=== PATIENT | female | born 1965 | race Caucasian/White ===

== ENCOUNTER 2024-07-15 06:35 | Emergency (ER) | payer SELFPAY ==
[2024-07-15 06:38] VITALS: BP 137/71
[2024-07-15 07:19] VITALS: BP 132/66
--- NOTE | 2024-07-15 07:19 | ED.GENMED ---
History of Present Illness
General
Chief Complaint: Alcohol Problem
Source: patient and ambulance crew
Exam Limitations: other (Alcohol intoxication)
Time Seen by Provider: 07/15/24 06:54
History of Present Illness
History of Present Illness:
58-year-old female who presents because she states she is 'scared to '. The patient states that she was sober for some months and recently started drinking again. She states she does not want to feel like this and does not want to drink. She
admits that she has a rehab stay planned for tomorrow. EMS reports that the patient was kicked out of her correction house and was standing in [facility]. Patient denies any current medical complaints. No abdominal pain. No vomiting. She admits
that she drinks vodka.
Past History
Past History
ED Past Medical History: Psychiatric (Anxiety, depression)
ED Past Surgical History: Cholecystectomy and
Phy Exam
Physical Exam
Physical Exam:
CONSTITUTIONAL Patient alert and oriented to person, place and time. Tearful on exam, mildly intoxicated. Vital signs reviewed.
HEAD atraumatic, normocephalic.
EYES eyelids normal to inspection, Extraocular muscles intact, Conjunctiva normal, Sclera normal.
NECK normal range of motion, Trachea midline, no jugular venous distention.
RESPIRATORY CHEST No respiratory distress noted, Chest expansion equal
ABDOMEN abdomen nontender, Bowel sounds normal. No distention.
BACK normal inspection, no obvious deformities
UPPER EXTREMITY range of motion normal, Motor strength normal, no cyanosis, no edema.
LOWER EXTREMITY range of motion normal, Motor strength normal, no cyanosis, no edema.
NEURO Speech normal, No focal motor deficits, [place] coma scale 15, Memory normal, Cranial Nerves intact to screening exam.
SKIN skin warm, dry, and normal in color.
Scores
Withdrawal Assessment of Alcohol
Withdrawal Assessment Completed?: Not applicable
Course
Orders/Labs/Results
Orders:
Orders
07/15/24 07:10
0.9% Sodium Chloride 1000 ml [Nss] 1,000 ml IV BOLUS
07/15/24 07:20
Complete Blood Count/With Diff Urgent
Comprehensive Metabolic Panel Urgent
Lipase Urgent
07/15/24 10:39
Ibuprofen [Motrin] 400 mg .ROUTE .STK-MED ONE
07/15/24 10:40
Ibuprofen [Motrin] 400 mg PO NOW STA
07/15/24 12:56
Diazepam [Valium] 10 mg PO NOW STA
07/15/24 12:59
Lorazepam [Ativan] 2 mg PO NOW STA
Abnormal Lab Results
07/15/24
07:20
Absolute Lymphs (auto) 3.8 H 10^3/uL
(1.2-3.4)
Neutrophils % 25.6 L %
(42.2-75.2)
Lymphocytes % 62.2 H %
(20.5-51.1)
Chloride 108 H mmol/L
(98-107)
Glucose 260 H mg/dl
(70-99)
Calcium 8.3 L mg/dl
(8.4-10.2)
AST 49 H U/L
(14-36)
07/15/24 07:20
07/15/24 07:20
Vital Signs
Initial and Last Documented VS:
Initial Vital Signs
Temp Pulse Resp BP Pulse Ox
97.9 F 78 20 137/71 92
07/15/24 06:38 07/15/24 06:38 07/15/24 06:38 07/15/24 06:38 07/15/24 06:38
Last Documented Vital Signs
Temp Pulse Resp BP Pulse Ox
97.9 F 84 12 126/62 93
07/15/24 06:38 07/15/24 12:29 07/15/24 10:00 07/15/24 10:00 07/15/24 12:29
MDM/Problems Addressed
MDM/Problems Addressed:
Acute alcohol intoxication, chronic alcoholism, acute hyperglycemia
*Pulse Oximetry
Patient hypoxic: no
*Critical Care Note
Total Time (30-74mins, 75-104mins- exclusive of procedures): Not Applicable
Data Reviewed
Source: patient
Prescriptions/Medications Considered But Not Given:
Considered benzodiazepines but no evidence of withdrawal.
Patient Management
Escalation/DeEscalation of care consider admission/obs:
Patient seen by Rajani guevara. Case discussed with the cares. Patient has placement tomorrow morning. Will give dose of Valium x 1 and okay for discharge for outpatient care through rehab. Patient also noted to be slightly hyperglycemic. Will cover
him with metformin but encouraged strongly to have outpatient follow-up.
ED Attending Note
-
Portions of this chart may have been created with voice recognition software.� Occasional wrong word or��sound alike� substitutions may have occurred due to the inherent limitations of voice recognition software.
Discharge Plan
Departure
Patient Disposition: Home (Routine Discharge)
Date of Disposition: 07/15/24
Time of Disposition: 12:54
Patient with high blood pressure during this ER visit?: No
Discharge Problem:
Acute alcohol intoxication, Alcoholism, Acute hyperglycemia
Instructions: Alcohol Use Disorder (DC), High Blood Sugar, Adult ED
Prescriptions:
New
metformin 500 mg tablet
500 mg PO BID Qty: 30 0RF
Referrals:
UNKNOWN - PT DOES,NOT KNOW [Family Provider] -
Activity Restrictions/Additional Instructions:
Please proceed to rehab tomorrow as planned.
Return immediately for vomiting, weakness, bleeding of any kind or any other concerns.
Interventions
Interventions:
*Risk Screen - Suicide Last Done: 07/15/24 06:46
*General Assessment Last Done: 07/15/24 07:34
*Neglect/Abuse Screening Last Done: 07/15/24 09:14
ED- Fall Risk Assessment Last Done: 07/15/24 07:34
*ED COVID-19 Vaccine History Last Done: 07/15/24 07:34
*Nursing Disposition Last Done: 07/15/24 14:32
ED- Neurological Assessment Last Done: 07/15/24 07:34
ED-Psychological Assessment Last Done: 07/15/24 07:34
Discharge Date and Time
Discharge Date/Time: 07/15/24 14:32
Print Language: SLOVENIAN
[2024-07-15] MEDS: NSS 1000 IV (07:23)
[2024-07-15 07:32] LABS: Hemoglobin 12.5 g/dL (12.0-16.0); Mean Corp Hgb Conc. 33.8 g/dL (33.0-37.0); Mean Corpuscular Hgb 29.8 pg (27.0-31.0); Mean Corpuscular Volume 88.1 fL (81.0-99.0); Mean Platelet Volume 9.5 fL (7.4-10.4); Platelet Count 155 10^3/uL (130-400); Red Cell Dist. Width 14.2 % (11.5-14.5); White Blood Cell Count 6.2 10^3/uL (4.8-10.8)
[2024-07-15 07:45] LABS: ALT (SGPT) 26 U/L (0-35); AST (SGOT) 49 U/L (14-36); Albumin 3.7 g/dl (3.5-5.0); Alkaline Phosphatase 68 U/L (38-126); Blood Urea Nitrogen 8 mg/dl (7-17); Calcium 8.3 mg/dl (8.4-10.2); Carbon Dioxide 27 mmol/L (22-30); Chloride 108 mmol/L (98-107); Glucose 260 mg/dl (70-99); Lipase 248 U/L (23-300); Potassium 3.5 mmol/L (3.5-5.1); Sodium 145 mmol/L (135-145); Total Bilirubin 1.3 mg/dl (0.2-1.3); Total Protein 7.6 g/dl (6.3-8.2); eGFR > 60.00
[2024-07-15 08:00] VITALS: BP 129/48
[2024-07-15 09:00] VITALS: BP 117/46
[2024-07-15 09:52] LABS: % Basophils 1.1 % (0-2); % Eosinophils 3.1 % (0-6); % Immature Granulocytes 0.2 % (0-0.5); % Lymphocytes 62.2 % (20.5-51.1); % Monocytes 7.8 % (1.7-9.3); % Neutrophils 25.6 % (42.2-75.2); Absolute Basophils 0.1 10^3/uL (0-0.2); Absolute Eosinophils 0.2 10^3/uL (0-0.7); Absolute Lymphocytes 3.8 10^3/uL (1.2-3.4); Absolute Monocytes 0.5 10^3/uL (0.1-0.6); Absolute Neutrophils 1.6 10^3/uL (1.4-6.5); Nucleated Red Blood Cells % 0 %
[2024-07-15 10:00] VITALS: BP 126/62
[2024-07-15] MEDS: MOTRIN 400 MG PO (10:41)
[2024-07-15] MEDS: ATIVAN 2 MG PO (13:03)
== END 2024-07-15 14:32 | disposition home or self-care (01) ==
LOC: EMR 06:35
PROVIDERS: EMERGENCY PHYSICIAN Emergency Medicine
DX: F10.229 Alcohol dependence with intoxication, unspecified (principal); R73.9 Hyperglycemia, unspecified; F41.8 Other specified anxiety disorders; Z90.49 Acquired absence of other specified parts of digestive tract
CPT/HCPCS: 99283; 96360; 80053; 83690; 85025